=== PATIENT | male | born 1975 | race African-American/Black ===

== ENCOUNTER 2020-09-01 17:27 | Emergency (ER) | payer MEDICAID ==
[~2020-09-01] VITALS: Ht 182.9 cm; Wt 108.9 kg
--- NOTE | 2020-09-01 17:29 | NUR ---
Patient brought in [facility] ambulance unit [facility] for right leg pain and swelling from [facility]
[2020-09-01] MEDS: ACETAMINOPHEN 325 MG TABLET PO ONE (17:45)
[2020-09-01] MEDS ORDERED: ACETAMINOPHEN 325 MG TABLET ONE (17:48)
[2020-09-01] MEDS ORDERED: HYDROCODONE/APAP 5-325MG TABLET ONE (18:32)
[2020-09-01] MEDS: HYDROCODONE/APAP 5-325MG TABLET PO ONE (18:34)
[2020-09-01] MEDS ORDERED: IBUP-1955 PO (18:40)
[2020-09-01] MEDS ORDERED: HYDR-3980 PO ×2 (18:41→18:42)
--- NOTE | 2020-09-01 19:29 | NUR ---
Called [facility] with ETA of [id number]
--- NOTE | 2020-09-01 20:19 | NUR ---
Patient given written and verbal discharge instructions. Patient verbalizes understanding of instructions. Patient given list of available shelters in surrounding area. Patient taken back to previous living condition at the [facility] via [facility]. All belongings given to patient. NAD noted
[2020-09-01 20:35] VITALS: BP 133/72
== END 2020-09-01 20:19 | disposition home or self-care (01) ==
LOC: ER 17:31
DX: G89.18 Other acute postprocedural pain (principal); M25.561 Pain in right knee; M25.461 Effusion, right knee; F31.9 Bipolar disorder, unspecified; F20.9 Schizophrenia, unspecified; F17.210 Nicotine dependence, cigarettes, uncomplicated; F15.10 Other stimulant abuse, uncomplicated; F14.10 Cocaine abuse, uncomplicated; Z59.0 Homelessness
CPT/HCPCS: 73562; A4663